=== PATIENT | male | born 1955 | race Caucasian/White ===

== ENCOUNTER 2021-02-26 10:44 | Emergency (ER) | payer OTHER ==
[~2021-02-26 10:44] MED LIST: FLOMAX0.4 MG PO
[2021-02-26 12:04] LABS: BASOPHIL 0.7 % (0-2); EOSINOPHIL 0.8 % (0-5); HCT 44.5 % (42.0-52.0); HGB 15.5 g/dl (13.2-18.0); LYMPHOCYTE 21.9 % (15-48); MCH 32.9 pg (25.0-31.0); MCHC 34.8 g/dL (32.0-36.0); MCV 94.5 fL (78.0-100.0); MONOCYTE 8.5 % (0-12); MPV 10.3 fL (6.0-9.5); NEUTROPHIL 67.1 % (41-80); NRBC 0; PLT 189 K/uL (150-400); RBC 4.71 M/uL (4.70-6.00); RDW 12.9 % (11.5-14.0)
[2021-02-26 12:16] LABS: ALBUMIN 3.9 g/dL (3.4-5.0); BILIRUBIN - TOTAL 0.3 mg/dL (0.2-1.0); BUN/CREAT RATIO (CALC) 27.5 RATIO; CREATININE 0.8 mg/dL (0.67-1.17); GLOBULIN (CALCULATION) 3.1 g/dL; POTASSIUM 4.2 mmol/L (3.5-5.1)
== END 2021-02-26 14:42 | disposition home or self-care (01) ==
LOC: FER 10:44
PROVIDERS: Internal Medicine
DX: R20.2 Paresthesia of skin (principal); R53.1 Weakness; R29.700 NIHSS score 0; I83.90 Asymptomatic varicose veins of unspecified lower extremity; F17.210 Nicotine dependence, cigarettes, uncomplicated
CPT/HCPCS: 36415; 70450; 80053; 85025